=== PATIENT | female | born 1980 | race Caucasian/White ===

== ENCOUNTER 2022-09-22 22:24 | Emergency (ER) | payer BC ==
[2022-09-22] MEDS: Ondansetron 4 MG/2 ML SDV IVPUSH ONE (22:53)
[2022-09-22] MEDS: fentaNYL 50 MCG/ML SDV IVPUSH ONE (22:53)
[2022-09-22 23:07] VITALS: BP 155/86; PULSE 110
[2022-09-22] MEDS: Ketorolac 30 MG/ML SDV IVPUSH ONE (23:28)
[2022-09-22] MEDS: Sodium Chloride 0.9% 1,000 ML IV ONE (23:55)
[2022-09-23] MEDS: Take Home: Acetaminophen/HYDROcodone 325-5 MG, 5 Tab Pack PO ONE (01:00)
[2022-09-23] MEDS: Take Home: Ondansetron 4 MG Tab.DIS, 5 Tab Pack PO ONE (01:00)
[2022-09-23] MEDS: Tamsulosin 0.4 MG Cap.ER PO ONE (01:05)
[2022-09-23] MEDS ORDERED: Take Home: Acetaminophen/HYDROcodone 325-5 MG, 5 Tab Pack ONE (01:09)
== END 2022-09-23 01:10 | disposition home or self-care (01) ==
LOC: VM.ED 22:24
DX: N13.2 Hydronephrosis with renal and ureteral calculous obstruction (principal)
CPT/HCPCS: 74176; 80053; 81001; 85025; 86140; 96361; 96374; 96375; 99284; 99284-25; A9270-GY; J1885; J2405; J3010; J7030; Q0162